=== PATIENT | male | born 1950 | race Two or more races ===

== ENCOUNTER 2016-07-24 14:03 | Emergency (ER) | payer OTHER ==
[~2016-07-24] VITALS: Ht 160 cm; Wt 58.8 kg
[~2016-07-24 14:03] MED LIST: GLUCOPHAGE500 MG PO; GUAIFENESIN WI120 M1 PO; IBUPROFEN800 MG PO; LEVOFLOXACIN750 MG PO; LISINOPRIL5 MG PO; METFORMIN HCL1000 MG PO; METFORMIN HCL850 MG PO; MULTI-DAY PLUS1 EACH PO; NAPROSYN375 MG PO; ULTRACET1 TABLET PO; VALIUM2 MG PO; [UNRECOGNIZED DRUG - OTHER] DT
[2016-07-24 14:28] LABS: POINT-OF-CARE METER ID UU13113778
[2016-07-24 18:38] VITALS: BP 208/56
== END 2016-07-24 18:39 | disposition home or self-care (01) ==
LOC: EME 14:03
DX: G62.9 Polyneuropathy, unspecified (principal); E11.9 Type 2 diabetes mellitus without complications
CPT/HCPCS: 70450; 82948; 99281; 99284

== ENCOUNTER 2016-10-02 09:07 | Emergency (ER) | payer OTHER ==
[~2016-10-02] VITALS: Ht 160 cm; Wt 53.9 kg
[2016-10-02] MEDS ORDERED: KEFLEX500 MG PO (12:22)
[2016-10-02 13:15] VITALS: BP 185/77
== END 2016-10-02 13:29 | disposition home or self-care (01) ==
LOC: EME 09:07
DX: L03.116 Cellulitis of left lower limb (principal); L98.9 Disorder of the skin and subcutaneous tissue, unspecified; I10 Essential (primary) hypertension; E11.40 Type 2 diabetes mellitus with diabetic neuropathy, unspecified
CPT/HCPCS: 99281; 99284

== ENCOUNTER 2016-11-07 11:08 | Emergency (ER) | payer OTHER ==
[~2016-11-07] VITALS: Ht 162.6 cm; Wt 56.6 kg
[~2016-11-07 11:08] MED LIST changes: +KEFLEX500 MG PO
[2016-11-07 13:20] LABS: BASOPHIL COUNT 0.1 K/uL (0-0.1); EOSINOPHIL (%) 1.9 % (0-5); EOSINOPHIL COUNT 0.2 K/uL (0-0.3); HEMATOCRIT 40.7 % (38.0-50.0); IMMATURE GRANULOCYTE (%) 0.3 % (0.0-0.7); INSTRUMENT ABS NEUTROPHIL CT 6.7 K/uL; LYMPHOCYTE COUNT 1.8 K/uL (1.0-2.8); MCH 27.8 PG (29.0-34.0); MCHC 32.4 G/DL (30.0-36.0); MCV 85.9 FL (86-99); MEAN PLAT.VOLUME 10.3 uM^3 (9.0-12.4); MONOCYTE (%) 5.9 % (3-12); MONOCYTE COUNT 0.6 K/uL (0-0.8); NEUTROPHIL COUNT 6.7 K/uL (1.8-6.4); PLATELET COUNT 267 K/uL (156-360); RBC DIS.WIDTH-CV 13.9 % (11.8-14.6); RBC DIS.WIDTH-SD 43.6 % (39-53); RED BLOOD COUNT 4.74 M/uL (4.00-5.50); WHITE BLOOD COUNT 9.3 K/uL (4.1-10.2)
[2016-11-07 13:37] LABS: CHLORIDE 100 mEq/L (99-109); POTASSIUM 4.8 mEq/L (3.7-5.4); SODIUM 135 mEq/L (136-147)
[2016-11-07 13:38] LABS: GLUCOSE 212 mg/dL (70-99)
[2016-11-07 13:40] LABS: ANION GAP 10 MEQ/L (2-14)
[2016-11-07 13:42] LABS: GFR ESTIMATE (CALCULATED) 59 mL/min/
[2016-11-07 13:43] LABS: UREA NITROGEN (BUN) 27 mg/dL (9-23)
[2016-11-07 14:01] VITALS: BP 153/78
== END 2016-11-07 14:02 | disposition home or self-care (01) ==
LOC: EME 11:08
PROVIDERS: Emergency Medicine
DX: R23.4 Changes in skin texture (principal)
CPT/HCPCS: 80048; 85025; 99281; 99283

== ENCOUNTER 2017-01-11 16:42 | Inpatient (IN) | payer OTHER ==
[~2017-01-11] VITALS: Ht 160 cm; Wt 52.1 kg
[2017-01-11 17:33] LABS: BASOPHIL COUNT 0.1 K/uL (0-0.1); EOSINOPHIL (%) 2.9 % (0-5); EOSINOPHIL COUNT 0.2 K/uL (0-0.3); HEMATOCRIT 40.3 % (38.0-50.0); IMMATURE GRANULOCYTE (%) 0.3 % (0.0-0.7); INSTRUMENT ABS NEUTROPHIL CT 3.8 K/uL; LYMPHOCYTE COUNT 1.7 K/uL (1.0-2.8); MCH 28.7 PG (29.0-34.0); MCHC 33.3 G/DL (30.0-36.0); MCV 86.3 FL (86-99); MEAN PLAT.VOLUME 9.5 uM^3 (9.0-12.4); MONOCYTE (%) 7.8 % (3-12); MONOCYTE COUNT 0.5 K/uL (0-0.8); NEUTROPHIL (%) 60.8 % (45-76); NEUTROPHIL COUNT 3.8 K/uL (1.8-6.4); PLATELET COUNT 267 K/uL (156-360); RBC DIS.WIDTH-CV 13.2 % (11.8-14.6); RBC DIS.WIDTH-SD 41.5 % (39-53); RED BLOOD COUNT 4.67 M/uL (4.00-5.50); WHITE BLOOD COUNT 6.3 K/uL (4.1-10.2)
[2017-01-11 17:51] LABS: CHLORIDE 108 mEq/L (99-109); POTASSIUM 4.9 mEq/L (3.7-5.4); SODIUM 141 mEq/L (136-147)
[2017-01-11 17:52] LABS: PROTHROMBIN TIME 11.1 SEC (10.2-12.9)
[2017-01-11 17:54] LABS: GLUCOSE 138 mg/dL (70-99)
[2017-01-11 17:55] LABS: ANION GAP 11 MEQ/L (2-14); PTT 33.4 SEC (25-37)
[2017-01-11 17:56] LABS: TOTAL BILIRUBIN 0.4 mg/dL (0.0-1.0)
[2017-01-11 17:57] LABS: ALKALINE PHOSPHATASE 84 IU/L (3-129); GFR ESTIMATE (CALCULATED) 58 mL/min/
[2017-01-11 17:58] LABS: UREA NITROGEN (BUN) 29 mg/dL (9-23)
[2017-01-11] MEDS ORDERED: VITAMIN C + RO500 MG PO (18:38)
[2017-01-11] MEDS ORDERED: ZZZQUIL25 MG PO (18:38)
[2017-01-11] MEDS ORDERED: QUIN B STRONG1 EACH PO (18:38)
[2017-01-11] MEDS ORDERED: SLOW RELEASE I142 M1 PO (18:39)
[2017-01-11 19:55] VITALS: BP 171/77
[2017-01-11 23:26] VITALS: BP 176/83
[2017-01-12 03:32] VITALS: BP 141/78
[2017-01-12 07:45] VITALS: BP 136/69
[2017-01-12 16:41] VITALS: BP 157/72
[2017-01-12 19:39] VITALS: BP 178/84
[2017-01-12 23:34] VITALS: BP 167/76
[2017-01-13 04:42] VITALS: BP 168/83
[2017-01-13 06:30] LABS: POINT-OF-CARE METER ID UU14208753
[2017-01-13 07:54] VITALS: BP 154/71
[2017-01-13 11:05] LABS: POINT-OF-CARE METER ID UU13113675
[2017-01-13 15:43] VITALS: BP 192/88
[2017-01-13 20:18] VITALS: BP 168/80
[2017-01-13 23:45] VITALS: BP 166/86
[2017-01-14] VITALS (7 sets, daily range): BP systolic 130–200; BP diastolic 56–85
[2017-01-14 06:23] LABS: HEMATOCRIT 39.4 % (38.0-50.0); MCH 29.7 PG (29.0-34.0); MCHC 34.3 G/DL (30.0-36.0); MCV 86.6 FL (86-99); PLATELET COUNT 256 K/uL (156-360); RBC DIS.WIDTH-CV 13.2 % (11.8-14.6); RBC DIS.WIDTH-SD 41.2 % (39-53); RED BLOOD COUNT 4.55 M/uL (4.00-5.50); WHITE BLOOD COUNT 9.9 K/uL (4.1-10.2)
[2017-01-14 06:44] LABS: POINT-OF-CARE METER ID UU14208753
[2017-01-14 06:56] LABS: ANION GAP 8 MEQ/L (2-14); CHLORIDE 104 MEQ/L (99-109); GFR ESTIMATE (CALCULATED) > 59 mL/min/; POTASSIUM 5.3 MEQ/L (3.7-5.4); SAMPLE HEMOLYSIS CHECK 0; SAMPLE ICTERIC CHECK 0; SAMPLE LIPEMIA CHECK 0; SODIUM 138 MEQ/L (136-147); UREA NITROGEN (BUN) 24 mg/dL (9-23)
[2017-01-14 06:57] LABS: GLUCOSE 234 mg/dL (70-99)
[2017-01-14 07:52] LABS: ADD MIUA? YES; BILIRUBIN NEGATIVE; BLOOD MODERATE; COLOR YELLOW ((YELLOW)); GLUCOSE (STRIP) >=500; KETONES 20; LEUKOCYTES NEGATIVE; NITRITE NEGATIVE; PROTEIN (STRIP) 100; SPECIFIC GRAVITY 1.018 (1.000-1.030); UROBILINOGEN 0.2 MG/DL (0.2-1.0)
[2017-01-14 08:12] LABS: BACTERIA NONE SEEN /HPF; EPITHELIAL CELLS NONE SEEN /HPF; MUCUS TRACE /LPF; RED BLOOD CELLS 15-20 /HPF (0-5)
[2017-01-14 08:13] LABS: WHITE BLOOD CELLS 0-5 /HPF (0-5)
[2017-01-14 11:25] LABS: POINT-OF-CARE METER ID UU14208753
[2017-01-14 16:31] LABS: POINT-OF-CARE METER ID UU14208753
[2017-01-15 04:04] VITALS: BP 132/73
[2017-01-15 06:02] LABS: EOSINOPHIL (%) 0.5 % (0-5); EOSINOPHIL COUNT 0.1 K/uL (0-0.3); HEMATOCRIT 37.5 % (38.0-50.0); IMMATURE GRANULOCYTE (%) 0.7 % (0.0-0.7); IMMATURE GRANULOCYTE COUNT 0.1 K/uL; INSTRUMENT ABS NEUTROPHIL CT 7.6 K/uL; LYMPHOCYTE COUNT 1.2 K/uL (1.0-2.8); MCH 28.8 PG (29.0-34.0); MCHC 33.6 G/DL (30.0-36.0); MCV 85.8 FL (86-99); MEAN PLAT.VOLUME 9.5 uM^3 (9.0-12.4); MONOCYTE (%) 9.6 % (3-12); NEUTROPHIL (%) 76.9 % (45-76); NEUTROPHIL COUNT 7.6 K/uL (1.8-6.4); PLATELET COUNT 231 K/uL (156-360); RBC DIS.WIDTH-SD 40.7 % (39-53); RED BLOOD COUNT 4.37 M/uL (4.00-5.50); WHITE BLOOD COUNT 9.9 K/uL (4.1-10.2)
[2017-01-15 06:56] LABS: Estimated Average Glucose 214 mg/dL (70-123); HEMOGLOBIN A1c (GLYCOHEMOGLOB) 9.1 % HGB (Below 5.7)
[2017-01-15 07:20] VITALS: BP 163/74
[2017-01-15 07:24] LABS: ANION GAP 9 MEQ/L (2-14); CHLORIDE 106 MEQ/L (99-109); GFR ESTIMATE (CALCULATED) > 59 mL/min/; GLUCOSE 159 mg/dL (70-99); POTASSIUM 4.7 MEQ/L (3.7-5.4); SAMPLE HEMOLYSIS CHECK 0; SAMPLE ICTERIC CHECK 0; SAMPLE LIPEMIA CHECK 0; SODIUM 138 MEQ/L (136-147); UREA NITROGEN (BUN) 16 mg/dL (9-23)
[2017-01-15 07:59] LABS: PSA FREE 7.05 ng/mL
[2017-01-15 08:05] LABS: POINT-OF-CARE METER ID UU14208753
[2017-01-15 10:12] VITALS: BP 136/68
[2017-01-15 11:06] LABS: POINT-OF-CARE METER ID UU14208753
[2017-01-15 11:19] VITALS: BP 152/72
[2017-01-15 16:36] LABS: POINT-OF-CARE METER ID UU14208753
[2017-01-15 16:37] VITALS: BP 154/74
[2017-01-15 20:30] VITALS: BP 143/90
[2017-01-16 00:10] VITALS: BP 159/72
[2017-01-16 03:08] VITALS: BP 123/62
[2017-01-16 07:27] VITALS: BP 188/81
[2017-01-16 11:11] VITALS: BP 181/86
[2017-01-16] MEDS ORDERED: TIZANIDINE HCL4 MG PO (13:39)
[2017-01-16] MEDS ORDERED: TAMSULOSIN HCL0.4 MG PO (13:39)
[2017-01-16] MEDS ORDERED: MOTRIN600 MG PO (13:40)
[2017-01-16] MEDS ORDERED: LISINOPRIL20 MG PO (13:40)
[2017-01-16] MEDS ORDERED: GABAPENTIN100 MG PO (13:41)
[2017-01-16] MEDS ORDERED: THERAGRAN1 TABLET PO (13:41)
[2017-01-16] MEDS ORDERED: TRAMADOL HCL50 MG PO (13:42)
[2017-01-16 15:22] VITALS: BP 181/88
[2017-01-17 00:20] VITALS: BP 150/102
[2017-01-17 03:59] VITALS: BP 180/90
[2017-01-17 04:20] VITALS: BP 186/87
[2017-01-17 06:22] LABS: POINT-OF-CARE METER ID UU14208753
[2017-01-17 08:11] VITALS: BP 146/72
[2017-01-17 12:05] VITALS: BP 162/73
[2017-01-17] MEDS ORDERED: TRAMADOL HCL50 MG PO (14:17)
== END 2017-01-17 17:08 | disposition home health service (06) | DRG 472 ==
LOC: EME 16:42 → 3EAST 18:21 → EDOF 18:21 → ENRESERV 18:24 → 3EAST 19:39
PROVIDERS: Emergency Medicine; Internal Medicine; Physician Assistant
PROC: 0RG10A1 (ICD-10-PCS; principal; 2017-01-13)
DX: M53.2X1 Spinal instabilities, occipito-atlanto-axial region (principal); G95.20 Unspecified cord compression; G81.94 Hemiplegia, unspecified affecting left nondominant side; M50.01 Cervical disc disorder with myelopathy, high cervical region; N13.8 Other obstructive and reflux uropathy; M50.10 Cervical disc disorder with radiculopathy, unspecified cervical region; M53.2X2 Spinal instabilities, cervical region; M48.02 Spinal stenosis, cervical region; M19.90 Unspecified osteoarthritis, unspecified site; K59.00 Constipation, unspecified; I10 Essential (primary) hypertension; G89.29 Other chronic pain; E11.9 Type 2 diabetes mellitus without complications; N40.1 Benign prostatic hyperplasia with lower urinary tract symptoms; R33.8 Other retention of urine; N99.89 Other postprocedural complications and disorders of genitourinary system; R35.1 Nocturia; Z59.0 Homelessness; Z79.84 Long term (current) use of oral hypoglycemic drugs
CPT/HCPCS: 72020; 72040; 72125; 76000; 76770; 80048; 80053; 81003; 82948; 83036; 84154 GA; 85025; 85027; 85610; 85730; 93005; 94799; 99281; 99284; C1713; G0103; J0131; J0360; J0690; J1170; J1580; J1650; J1815; J1885; J2250; J2710; J2930; J3010; J3370; J3480; S0020; S0028

== ENCOUNTER 2017-03-19 10:17 | Emergency (ER) | payer OTHER ==
[~2017-03-19] VITALS: Ht 162.6 cm; Wt 55.4 kg
[~2017-03-19 10:17] MED LIST changes: +GABAPENTIN100 MG PO; +LISINOPRIL20 MG PO; +MOTRIN600 MG PO; +QUIN B STRONG1 EACH PO; +SLOW RELEASE I142 M1 PO; +TAMSULOSIN HCL0.4 MG PO; +THERAGRAN1 TABLET PO; +TIZANIDINE HCL4 MG PO; +TRAMADOL HCL50 MG PO; +VITAMIN C + RO500 MG PO; +ZZZQUIL25 MG PO
[2017-03-19 15:00] VITALS: BP 134/62
== END 2017-03-19 15:44 | disposition home or self-care (01) ==
LOC: EME 10:17
DX: R51 Headache (principal); M48.02 Spinal stenosis, cervical region; R20.2 Paresthesia of skin; Z98.1 Arthrodesis status; I10 Essential (primary) hypertension; E11.9 Type 2 diabetes mellitus without complications; Z79.84 Long term (current) use of oral hypoglycemic drugs; F41.9 Anxiety disorder, unspecified
CPT/HCPCS: 72040; 80053; 85027; 99281; 99284

== ENCOUNTER 2017-08-03 11:16 | Emergency (ER) | payer OTHER ==
[~2017-08-03] VITALS: Ht 160 cm; Wt 56.0 kg
[2017-08-03 13:52] LABS: HEMATOCRIT 37.1 % (38.0-50.0); HEMOGLOBIN 12.5 G/DL (12.5-16.6); MCH 28.9 PG (29.0-34.0); MCHC 33.7 G/DL (30.0-36.0); MCV 85.9 FL (86-99); PLATELET COUNT 264 K/uL (156-360); RBC DIS.WIDTH-CV 12.7 % (11.8-14.6); RBC DIS.WIDTH-SD 39.7 % (39-53); RED BLOOD COUNT 4.32 M/uL (4.00-5.50); WHITE BLOOD COUNT 6.5 K/uL (4.1-10.2)
[2017-08-03 14:01] LABS: ALBUMIN 3.7 g/dL (3.2-4.8)
[2017-08-03 14:02] LABS: CHLORIDE 104 mEq/L (99-109); POTASSIUM 4.8 mEq/L (3.7-5.4); SODIUM 137 mEq/L (136-147)
[2017-08-03 14:04] LABS: GLUCOSE 280 mg/dL (70-99)
[2017-08-03 14:06] LABS: TOTAL BILIRUBIN 0.2 mg/dL (0.0-1.0)
[2017-08-03 14:07] LABS: ALKALINE PHOSPHATASE 117 IU/L (3-129)
[2017-08-03 14:08] LABS: CREATININE 1.4 mg/dL (0.6-1.3); GFR ESTIMATE (CALCULATED) 54 mL/min/ (58.99-99999)
[2017-08-03 14:09] LABS: AST (GOT) 16 IU/L (2-34); UREA NITROGEN (BUN) 24 mg/dL (9-23)
[2017-08-03 14:10] LABS: ALT (GPT) 17 IU/L (3-49)
[2017-08-03 15:35] LABS: APPEARANCE CLEAR ((CLEAR)); BILIRUBIN NEGATIVE; BLOOD NEGATIVE; COLOR YELLOW ((YELLOW)); GLUCOSE (STRIP) >=500; KETONES NEGATIVE; LEUKOCYTES NEGATIVE; NITRITE NEGATIVE; PROTEIN (STRIP) 30; SPECIFIC GRAVITY 1.018 (1.000-1.030); UCUL ADDED? NO; UROBILINOGEN 0.2 MG/DL (0.2-1.0)
[2017-08-03] MEDS ORDERED: FLEXERIL5 MG PO (16:12)
[2017-08-03] MEDS ORDERED: MOTRIN600 MG PO (16:12)
[2017-08-03] MEDS ORDERED: TRAMADOL HCL50 MG PO (16:12)
[2017-08-03 17:07] VITALS: BP 130/67
== END 2017-08-03 17:10 | disposition home or self-care (01) ==
LOC: EME 11:16
PROVIDERS: Physician Assistant
DX: S39.012A Strain of muscle, fascia and tendon of lower back, initial encounter (principal); S16.1XXA Strain of muscle, fascia and tendon at neck level, initial encounter; W18.30XA Fall on same level, unspecified, initial encounter; W51.XXXA Accidental striking against or bumped into by another person, initial encounter; E11.65 Type 2 diabetes mellitus with hyperglycemia; Z71.6 Tobacco abuse counseling; I10 Essential (primary) hypertension; Z79.84 Long term (current) use of oral hypoglycemic drugs; Z98.1 Arthrodesis status
CPT/HCPCS: 72050; 72100; 80053; 81003; 82010; 82948; 85027; 99281; 99285

== ENCOUNTER 2017-12-05 12:37 | Emergency (ER) | payer OTHER ==
[~2017-12-05] VITALS: Ht 160 cm; Wt 55.3 kg
[~2017-12-05 12:37] MED LIST changes: +FLEXERIL5 MG PO
[2017-12-05 17:20] VITALS: BP 145/89
== END 2017-12-05 17:22 | disposition home or self-care (01) ==
LOC: EME 12:37
DX: S20.212A Contusion of left front wall of thorax, initial encounter (principal); S50.01XA Contusion of right elbow, initial encounter; S40.022A Contusion of left upper arm, initial encounter; S60.222A Contusion of left hand, initial encounter; Y00.XXXA Assault by blunt object, initial encounter
CPT/HCPCS: 71046; 73060; 73080; 73130; 99281; 99284

== ENCOUNTER 2018-01-19 12:27 | Emergency (ER) | payer OTHER ==
[~2018-01-19] VITALS: Ht 165.1 cm; Wt 53.0 kg
[2018-01-19 13:29] LABS: HEMATOCRIT 38.2 % (38.0-50.0); HEMOGLOBIN 12.7 G/DL (12.5-16.6); MCH 28.4 PG (29.0-34.0); MCHC 33.2 G/DL (30.0-36.0); MCV 85.5 FL (86-99); PLATELET COUNT 289 K/uL (156-360); RBC DIS.WIDTH-CV 12.7 % (11.8-14.6); RBC DIS.WIDTH-SD 39.1 % (39-53); RED BLOOD COUNT 4.47 M/uL (4.00-5.50); WHITE BLOOD COUNT 5.8 K/uL (4.1-10.2)
[2018-01-19 13:38] LABS: CHLORIDE 104 mEq/L (99-109); POTASSIUM 4.9 mEq/L (3.7-5.4); SODIUM 139 mEq/L (136-147)
[2018-01-19 13:40] LABS: GLUCOSE 236 mg/dL (70-99)
[2018-01-19 13:44] LABS: CREATININE 1.6 mg/dL (0.6-1.3); GFR ESTIMATE (CALCULATED) 46 mL/min/ (58.99-99999)
[2018-01-19 13:45] LABS: UREA NITROGEN (BUN) 24 mg/dL (9-23)
[2018-01-19] MEDS ORDERED: KEFLEX500 MG PO (14:07)
[2018-01-19] MEDS ORDERED: BACTROBAN OINTM22 GM TP (14:07)
[2018-01-19 14:21] VITALS: BP 142/73
== END 2018-01-19 14:46 | disposition home or self-care (01) ==
LOC: EME 12:27
PROVIDERS: Nurse Practitioner Family
DX: S51.811D Laceration without foreign body of right forearm, subsequent encounter (principal); Z91.81 History of falling; E11.65 Type 2 diabetes mellitus with hyperglycemia; N28.9 Disorder of kidney and ureter, unspecified; Z79.84 Long term (current) use of oral hypoglycemic drugs
CPT/HCPCS: 80048; 85027; 87070; 87075; 87077; 87147; 87186; 87205; 99281; 99283